=== PATIENT | male | born 1960 | race Caucasian/White ===

== ENCOUNTER 2019-09-10 19:23 | Emergency (ER) | payer MEDICAID ==
[~2019-09-10] VITALS: Ht 172.7 cm; Wt 113.6 kg
[2019-09-10 19:31] VITALS: Ht 172.7 cm; Wt 113.6 kg
[2019-09-10] MEDS ORDERED: RISPERDAL1 MG PO (19:33)
[2019-09-10] MEDS ORDERED: PROZAC20 MG PO (19:33)
[2019-09-10] MEDS ORDERED: SEROQUEL50 MG PO (19:34)
[2019-09-10] MEDS ORDERED: GLUCOPHAGE1000 MG PO (19:34)
[2019-09-10] MEDS ORDERED: GLIPIZIDE10 MG PO (19:35)
[2019-09-10] MEDS ORDERED: SEROQUEL300 MG PO (19:35)
[2019-09-10] MEDS ORDERED: PROPRANOLOL HCL20 MG PO ×2 (19:36→19:40)
[2019-09-10] MEDS ORDERED: DEPAKOTE500 MG PO (19:36)
[2019-09-10] MEDS ORDERED: JANUVIA100 MG PO (19:36)
[2019-09-10] MEDS ORDERED: ATIVAN2 MG PO (19:37)
[2019-09-10] MEDS ORDERED: BENZTROPINE MESY1 MG PO (19:37)
[2019-09-10] MEDS ORDERED: SYNTHROID150 MCG PO (19:37)
[2019-09-10] MEDS ORDERED: PRAVACHOL20 MG (19:40)
[2019-09-10] MEDS ORDERED: MIRAPEX0.5 MG PO (19:40)
[2019-09-10] MEDS ORDERED: TRAZODONE PO (19:40)
[2019-09-10 20:07] LABS: BASOPHILS 0.3 % (0-2); EOSINOPHILS 3.4 % (0-7); HEMATOCRIT 38.9 % (42.0-54.0); HEMOGLOBIN 13.1 g/dL (13.5-17.5); IMMATURE GRANULOCYTES 0.5 % (0-5); MCH 30.5 pg (26.0-34.0); MCHC 33.7 g/dL (31.0-37.0); MCV 90.5 fL (80.0-100.0); MEAN PLATELET VOLUME 8.7 fL (7.4-10.4); MONOCYTES 8.9 % (2-11); NEUTROPHILS 59.9 % (40-80); PLATELET COUNT 209 10x3/uL (130-400); RDW 12.2 % (11.5-14.5); WBC 5.8 10x3/uL (4.8-10.8)
[2019-09-10 20:22] LABS: CALC OSMOLALITY 268 mosm/kg (275-300); CARBON DIOXIDE 29.8 mmol/L (21.0-32.0); CHLORIDE - SERUM 99 mmol/L (98-107); GLUCOSE 153 mg/dL (74-106); SODIUM 132 mmol/L (136-145); UREA NITROGEN 16 mg/dL (7-18); eGFR NON AFRICAN AMERICAN 81 mL/min (90-120)
[2019-09-10 20:30] LABS: BILIRUBIN NEGATIVE (NEGATIVE); GLUCOSE NEGATIVE (NEGATIVE); KETONE MODERATE mg/dL (NEGATIVE); NITRITE NEGATIVE (NEGATIVE); UROBILINOGEN 2 mg/dL (NORMAL)
[2019-09-10 20:36] LABS: ALBUMIN 3.4 g/dL (3.4-5.0); ALKALINE PHOSPHATASE 82 U/L (30-120); ALT (SGPT) 21 U/L (10-68); BILIRUBIN - TOTAL 0.23 mg/dL (0.2-1.3); PROTEIN - SERUM 7.2 g/dL (6.4-8.2); THYROID STIMULATING HORMONE 2.29 uIU/mL (0.36-3.74); VALPROIC ACID (DEPAKOTE) 40.5 ug/mL (50.0-100.0)
[2019-09-10 20:40] LABS: UDS - AMPHET NEGATIVE QUAL (NEGATIVE); UDS - BARB NEGATIVE QUAL (NEGATIVE); UDS - BENZO NEGATIVE QUAL (NEGATIVE); UDS - COCAINE NEGATIVE QUAL (NEGATIVE); UDS - OPIATE NEGATIVE QUAL (NEGATIVE); UDS - PCP NEGATIVE QUAL (NEGATIVE); UDS - THC NEGATIVE QUAL (NEGATIVE)
--- NOTE | 2019-09-10 21:07 | NUR ---
DR. FORTUNE NOTIFIED AND REVIEWED PT'S BEHAVIOR AND ASSESSMENT RESULTS. PT IS A LOW RISK PER DR. FORTUNE. DR. FORTUNE STATED TO GIVE RESOURCES AT TIME OF DISCHARGE. NO FURTHER ORDERS AT THIS TIME. RESOURCES REVIEWED WITH PT AND HE VERBALIZED UNDERSTANDING.
[2019-09-11 03:21] LABS: THYROID STIMULATING HORMONE 2.1 uIU/mL (0.36-3.74)
[2019-09-11 19:02] VITALS: BP 122/62
== END 2019-09-11 19:08 ==
LOC: D.ER 19:23
PROVIDERS: Family Medicine
DX: R45.1 Restlessness and agitation (principal); E87.1 Hypo-osmolality and hyponatremia; E11.65 Type 2 diabetes mellitus with hyperglycemia; Z79.84 Long term (current) use of oral hypoglycemic drugs